=== PATIENT | female | born 1960 | race Caucasian/White ===

== ENCOUNTER 2020-04-26 21:56 | Emergency (ER) | payer OTHER ==
[2020-04-26 23:14] LABS: Absolute Lymphocytes (CBC) 1.7 K/uL (0.7-4.9); Basophils % 0.6 % (0-1.3); Hematocrit 34.2 % (36.0-45.0); Lymphocytes % 13.5 % (15.3-44.8); MPV 10.7 fL (7.6-11.3); RBC Red Blood Cell Count 3.62 M/uL (3.86-4.86)
[2020-04-26 23:39] LABS: ALT/SGPT 129 U/L (12-78); AST/SGOT 252 U/L (15-37); Albumin 3.6 g/dL (3.4-5.0); Alkaline Phosphatase 46 U/L (45-117); BUN Blood Urea Nitrogen 10 mg/dL (7-18); Bicarbonate 27 mmol/L (21-32); Bilirubin Direct 0.1 mg/dL (0-0.2); Bilirubin Total 0.3 mg/dL (0.2-1.0); Glucose Level 107 mg/dL (74-106); Potassium 3.4 mmol/L (3.5-5.1); Protein, Total 6.2 g/dL (6.4-8.2); Sodium Level 142 mmol/L (136-145); Troponin (Emerg Dept Use Only) < 0.02 ng/mL (0.0-0.045)
[2020-04-27] MEDS ORDERED: MULTIVITAMINS 10 ML VIAL (INJ) IV ONE (00:18)
[2020-04-27] MEDS ORDERED: THIAMINE 200 MG/2 ML INJ ONE (00:18)
[2020-04-27] MEDS ORDERED: NA CHLORIDE 0.9% 1,000 ML ONE (00:19)
[2020-04-27] MEDS ORDERED: FOLIC ACID 5 MG/ML VIAL ONE (00:19)
--- NOTE | 2020-04-27 00:26 | ER ---
Nurse's Notes [facility] Name: Francie Moya Age: 60 yrs Sex: Female : 1960 Arrival Date: 04/26/2020 Time: 22:32 Bed 20 Private MD: Diagnosis: Alcohol abuse;Nausea and vomiting Presentation: 04/26 22:32 Chief complaint: EMS states: Called for patient with N/V tonight; Reports drinking ETOH lp1 "all day"; family concerned because she "has a high tolerance". Coronavirus screen: Client denies travel out of the [place] in the last 14 days. At this time, the client does not indicate any symptoms associated with coronavirus-19. Ebola Screen: No symptoms or risks identified at this time. Initial Sepsis Screen: Does the patient meet any 2 criteria? No. Patient's initial sepsis screen is negative. Does the patient have a suspected source of infection? No. Patient's initial sepsis screen is negative. Risk Assessment: Do you want to hurt yourself or someone else? Patient reports no desire to harm self or others. Note Given Zofran 4mg IV with relief; 20g IV to L AC by EMS. Onset of symptoms was April 26, 2020. 22:32 Method Of Arrival: EMS: [facility] lp1 22:32 Acuity: [facility] 3 lp1 22:35 Note Patient's family reported to EMS, COVID + about 2 weeks ago. lp1 Historical: - Allergies: 22:34 No Known Allergies; lp1 - Home Meds: 22:35 gabapentin oral oral [Active]; levothyroxine oral [Active]; Cyclobenzaprine Oral lp1 [Active]; - PMHx: 22:35 Hypothyroidism; Osteoporosis; lp1 - PSHx: 22:35 None; lp1 - Immunization history:: Adult Immunizations up to date. - Social history:: Patient uses street drugs, marijuana, Smoking status: Patient denies any tobacco usage or history of. Screenin:45 Abuse screen: Denies threats or abuse. Nutritional screening: No deficits noted. jb4 Tuberculosis screening: No symptoms or risk factors identified. Fall Risk None identified. Assessment: 22:45 General: Appears in no apparent distress. comfortable, Behavior is calm, cooperative, jb4 appropriate for age. Pain: Denies pain. Neuro: Level of Consciousness is awake, alert, obeys commands, Oriented to person, place, time, situation. Cardiovascular: Patient's skin is warm and dry. Respiratory: Airway is patent Respiratory effort is even, unlabored, Respiratory pattern is regular, symmetrical. GI: Abdomen is flat, non-distended, Reports nausea, vomiting. : No signs and/or symptoms were reported regarding the genitourinary system. EENT: No signs and/or symptoms were reported regarding the EENT system. Derm: Skin is intact, Skin is pink, warm \\T\\ dry. Musculoskeletal: Circulation, motion, and sensation intact. Range of motion: intact in all extremities. 04/27 00:00 Reassessment: Patient appears in no apparent distress at this time. Patient and/or jb4 family updated on plan of care and expected duration. Pain level reassessed. Patient is alert, oriented x 3, equal unlabored respirations, skin warm/dry/pink. 00:32 Reassessment: D/c pending completion of IV fluids. jb4 01:13 Reassessment: Patient appears in no apparent distress at this time. Patient and/or jb4 family updated on plan of care and expected duration. Pain level reassessed. Patient is alert, oriented x 3, equal unlabored respirations, skin warm/dry/pink. Vital Signs: 04/26 22:32 BP 122 / 77; Pulse 90; Resp 18; Pulse Ox 99% on R/A; Weight 59.87 kg (R); Height 5 ft. lp1 7 in. (170.18 cm); 23:15 BP 103 / 56; Pulse 78; Resp 16; Pulse Ox 98% on R/A; jb4 04/27 00:45 BP 109 / 70; Pulse 88; Resp 17; Pulse Ox 97% on R/A; jb4 04/26 22:32 Body Mass Index 20.67 (59.87 kg, 170.18 cm) lp1 ED Course: 04/26 22:32 Patient arrived in ED. lp1 22:34 Triage completed. lp1 22:45 Patient has correct armband on for positive identification. Bed in low position. Call jb4 light in reach. Side rails up X 1. Pulse ox on. NIBP on. 22:47 Sunil Andrew NP is PHCP. pm1 22:47 Adama Lu MD is Attending Physician. pm1 22:55 Thomas Smyth, RN is Primary Nurse. jb4 23:36 CT Head Brain wo Cont In Process Unspecified. EDMS 04/27 01:15 No provider procedures requiring assistance completed. IV discontinued, intact, jb4 bleeding controlled, No redness/swelling at site. Pressure dressing applied. Administered Medications: 00:20 Drug: Banana Bag - (NS 0.9% 1000 ml, foLIC Acid 1 mg, Thiamine 100 mg, Multivitamin 1 jb4 amp) Route: IV; Rate: calculated rate; Site: left antecubital; 01:15 Follow up: Response: No adverse reaction; IV Status: Order to discontinue infusion; IV jb4 Intake: 185ml Intake: 01:15 IV: 185ml; Total: 185ml. jb4 Outcome: 00:26 Discharge ordered by . pm1 01:15 Discharged to home ambulatory, with family. jb4 01:15 Condition: stable 01:15 Discharge instructions given to patient, Instructed on discharge instructions, follow up and referral plans. medication usage, Demonstrated understanding of instructions, follow-up care, medications, Prescriptions given X 1. 01:16 Patient left the ED. jb4 Signatures: Dispatcher [employer] EDCO Carol Lopez, RN RN lp1 Sunil Andrew, TAX FORM PREPARER TAX FORM PREPARER pm1 Thomas Smyth, RN RN jb4
--- NOTE | 2020-04-27 00:27 | EDPHYS ---
Physician Documentation [facility] Name: Francie Moya Age: 60 yrs Sex: Female : 1960 Arrival Date: 04/26/2020 Time: 22:32 Bed 20 Private MD: ED Physician Adama Lu HPI: 04/26 23:15 This 60 yrs old Female presents to ER via EMS with complaints of pm1 Nausea/Vomiting. 23:15 The patient presents to the emergency department with nausea, vomiting. Onset: The pm1 symptoms/episode began/occurred just prior to arrival, today. Possible causes: ETOH - Patient has been drinking all day. The symptoms are aggravated by alcohol, The symptoms are alleviated by nothing. Associated signs and symptoms: Pertinent negatives: abdominal pain, dysuria, fever. Severity of symptoms: in the emergency department the symptoms have improved Pain is currently a 0 / 10. The patient has not recently seen a physician. Historical: - Allergies: 22:34 No Known Allergies; lp1 - Home Meds: 22:35 gabapentin oral oral [Active]; levothyroxine oral [Active]; Cyclobenzaprine Oral lp1 [Active]; - PMHx: 22:35 Hypothyroidism; Osteoporosis; lp1 - PSHx: 22:35 None; lp1 - Immunization history:: Adult Immunizations up to date. - Social history:: Patient uses street drugs, marijuana, Smoking status: Patient denies any tobacco usage or history of. ROS: 23:15 Constitutional: Negative for fever, chills, and weight loss, Cardiovascular: Negative pm1 for chest pain, palpitations, and edema, Respiratory: Negative for shortness of breath, cough, wheezing, and pleuritic chest pain. 23:15 Back: Negative for injury and pain, MS/Extremity: Negative for injury and deformity, Skin: Negative for injury, rash, and discoloration, Neuro: Negative for headache, weakness, numbness, tingling, and seizure. 23:15 Abdomen/GI: Positive for nausea and vomiting, Negative for abdominal pain, diarrhea, constipation. Exam: 23:16 Constitutional: This is a well developed, well nourished patient who is awake, alert, pm1 and in no acute distress. Head/Face: Normocephalic, atraumatic. Neck: Trachea midline, no thyromegaly or masses palpated, and no cervical lymphadenopathy. Supple, full range of motion without nuchal rigidity, or vertebral point tenderness. No Meningismus. 23:16 Back: No spinal tenderness. No costovertebral tenderness. Full range of motion. Skin: Warm, dry with normal turgor. Normal color with no rashes, no lesions, and no evidence of cellulitis. MS/ Extremity: Pulses equal, no cyanosis. Neurovascular intact. Full, normal range of motion. 23:16 Constitutional: The patient appears smells of alcohol. 23:16 Cardiovascular: Exam negative for acute changes, Rate: normal, Rhythm: regular, Pulses: no pulse deficits are appreciated. 23:16 Respiratory: Exam negative for acute changes, respiratory distress, shortness of breath. 23:16 Abdomen/GI: Inspection: abdomen appears normal, Palpation: abdomen is soft and non-tender, in all quadrants. 23:16 Neuro: Exam negative for acute changes, Orientation: is normal, Mentation: is normal, Motor: is normal, moves all fours, Sensation: is normal, no obvious gross deficits. Vital Signs: 22:32 BP 122 / 77; Pulse 90; Resp 18; Pulse Ox 99% on R/A; Weight 59.87 kg (R); Height 5 ft. lp1 7 in. (170.18 cm); 23:15 BP 103 / 56; Pulse 78; Resp 16; Pulse Ox 98% on R/A; jb4 04/27 00:45 BP 109 / 70; Pulse 88; Resp 17; Pulse Ox 97% on R/A; jb4 04/26 22:32 Body Mass Index 20.67 (59.87 kg, 170.18 cm) lp1 MDM: 04/26 22:50 Patient medically screened. pm1 23:17 Data reviewed: vital signs. pm1 04/27 00:25 Counseling: I had a detailed discussion with the patient and/or guardian regarding: the pm1 historical points, exam findings, and any diagnostic results supporting the discharge/admit diagnosis, lab results, radiology results, the need for outpatient follow up, to return to the emergency department if symptoms worsen or persist or if there are any questions or concerns that arise at home. 04/26 23:00 Order name: ETOH Level; Complete Time: 23:49 pm1 04/26 23:00 Order name: Basic Metabolic Panel; Complete Time: 23:49 pm04/26 23:00 Order name: CT Head Brain wo Cont pm04/26 23:00 Order name: CBC with Diff; Complete Time: 23:29 pm04/26 23:00 Order name: LFT's; Complete Time: 23:49 pm04/26 23:00 Order name: Troponin (emerg Dept Use Only); Complete Time: 23:49 pm04/26 23:00 Order name: EKG; Complete Time: 23:01 pm04/26 23:00 Order name: Cardiac monitoring; Complete Time: 23:17 pm04/26 23:00 Order name: EKG - Nurse/Tech; Complete Time: 23:17 pm04/26 23:00 Order name: IV Saline Lock; Complete Time: 23:07 pm04/26 23:00 Order name: Labs collected and sent; Complete Time: 23:07 pm04/26 23:01 Order name: O2 Per Protocol; Complete Time: 23:07 pm04/26 23:01 Order name: O2 Sat Monitoring; Complete Time: 23:07 pm1 Administered Medications: 00:20 Drug: Banana Bag - (NS 0.9% 1000 ml, foLIC Acid 1 mg, Thiamine 100 mg, Multivitamin 1 jb4 amp) Route: IV; Rate: calculated rate; Site: left antecubital; 01:15 Follow up: Response: No adverse reaction; IV Status: Order to discontinue infusion; IV jb4 Intake: 185ml Disposition: 07:03 Co-signature as Attending Physician, Adama Lu MD. [email or web address] Disposition: 04/27/20 00:26 Discharged to Home. Impression: Alcohol abuse, Nausea and vomiting. - Condition is Stable. - Discharge Instructions: Finding Treatment for Addiction, Nausea and Vomiting, Adult, Alcohol Abuse and Nutrition. - Prescriptions for Zofran ODT 4 mg Oral tablet,disintegrating - place 1 tablet by TRANSLINGUAL route every 8 hours As needed; 12 tablet. - Medication Reconciliation Form, Thank You Letter, Antibiotic Education, Prescription Opioid Use form. - Follow up: Emergency Department; When: As needed; Reason: Worsening of condition. Follow up: Private Physician; When: 2 - 3 days; Reason: Recheck today's complaints, Continuance of care, Re-evaluation by your physician. - Problem is new. - Symptoms have improved. Signatures: Dispatcher [employer] EDMS Carol Lopez RN RN lp1 Suinl Andrew, JESSICA 3D ARTIST pm1 Thomas Smyth RN RN jb4 Adama Lu MD MD [email or web address] Corrections: (The following items were deleted from the chart) 01:16 00:26 04/27/2020 00:26 Discharged to Home. Impression: Alcohol abuse; Nausea and jb4 vomiting. Condition is Stable. Forms are Medication Reconciliation Form, Thank You Letter, Antibiotic Education, Prescription Opioid Use. Follow up: Emergency Department; When: As needed; Reason: Worsening of condition. Follow up: Private Physician; When: 2 - 3 days; Reason: Recheck today's complaints, Continuance of care, Re-evaluation by your physician. Problem is new. Symptoms have improved. pm1
[2020-04-27 01:22] VITALS: BP 109/70; O2SAT 97
--- NOTE | 2020-04-28 14:31 | RAD REPORT ---
EXAM DESCRIPTION: CT - Head Brain Wo Cont - 04/27/2020 1:51 am CLINICAL HISTORY: 60 years Female MENTAL STATUS CHANGE COMPARISON: None. TECHNIQUE: Contiguous axial CT images obtained through the brain without IV contrast. This exam was performed according to our department optimization program which includes automated exp osure control, adjustment of the mA and/or kv according to patient size and/or use of iterative recon struction technique. FINDINGS: The ventricles and sulci appear mildly prominent. No abnormal areas of decreased density are identified. No mass lesions. No acute hemorrhage. Mild mucosal thickening in some of the ethmoid air cells. Minimal mucosal thickening in the left sphe noid sinus. Mild mucosal thickening in the right maxillary sinus. No depressed calvarial fractures. IMPRESSION: No acute intracranial abnormality is identified. Electronically signed by: Anthony العراقي MD 04/26/2020 11:56 PM ADOPTION SERVICES MANAGER Due to temporary technical issues with the PACS/Fluency reporting system, reports are being signed by the in house radiologists without review as a courtesy to insure prompt reporting. The interpreting radiologist is fully responsible for the content of the report.
== END 2020-04-27 01:16 | disposition home or self-care (01) ==
LOC: ER 21:56
DX: F10.10 Alcohol abuse, uncomplicated (principal); E03.9 Hypothyroidism, unspecified
CPT/HCPCS: 96365; 93005; 85025; 80048; 36415; 80320; 80076; 84484; 70450; 99284; J3411; J7030